=== PATIENT | female | born 1960 | race Caucasian/White ===

== ENCOUNTER 2017-06-10 15:04 | Emergency (ER) | payer MEDICARE ==
[2017-06-10 16:04] LABS: #Basophils 0.1 thou/uL (0.0-0.2); #Eosinphils 0.1 thou/uL (0.0-0.7); #Lymphocytes 2.6 thou/uL (1.20-3.40); #Monocytes 0.4 thou/uL (0.11-0.59); #Neutrophils 4.8 thou/uL (1.40-6.50); %Basophils 0.8 % (0.0-1.0); %Eosinophils 1.7 % (0.0-10.0); %Lymphocytes 32.2 % (21.0-51.0); %Monocytes 4.9 % (0.0-10.0); Bilirubin Negative (Negative); Blood, Urine Large (Negative); Glucose, Urine (Dipstick) Negative (Negative); Hematocrit 41.5 % (36.0-47.0); Ketone, Urine Trace mg/dL (Negative); Mean Platelet Volume 8.2 fL (7.4-10.4); Nitrite Negative (Negative); Protein, Urine (Dipstick) 100 mg/dL (Neg-Trace); Red Blood Cell (RBC) Count 4.53 mill/uL (4.20-5.40); Urobilinogen 0.2 mg/dL (0.2-1.0)
[2017-06-10 16:13] LABS: Bacteria/HPF 2+ HPF (None Seen); WBC/HPF None Seen HPF (0-3)
[2017-06-10 16:21] LABS: ALT (SGPT) 47 U/L (8-55); AST (SGOT) 36 U/L (5-34); Alkaline Phosphatase 114 U/L (40-150); Anion Gap 15 mmol/L (10-20); BUN (Urea Nitrogen) 19 mg/dL (9.8-20.1); Bilirubin, Total 0.4 mg/dL (0.2-1.2); Calc. Creatinine Clearance 0 mL/min (70-130); Calcium 9.4 mg/dL (7.8-10.44); Carbon Dioxide 22 mmol/L (22-29); Chloride 104 mmol/L (98-107); Estimated GFR-MDRD 49; Globulin 3.6 g/dL (2.4-3.5); Magnesium 1.8 mg/dL (1.6-2.6); Protein, Total 7.6 g/dL (6.0-8.3)
[2017-06-10] MEDS ORDERED: Acetaminophen 325 MG TAB ONE (17:31)
== END 2017-06-10 17:50 | disposition home or self-care (01) ==
LOC: SCSER 15:04
DX: E10.65 Type 1 diabetes mellitus with hyperglycemia (principal); K62.5 Hemorrhage of anus and rectum; I10 Essential (primary) hypertension; F31.9 Bipolar disorder, unspecified; Z79.84 Long term (current) use of oral hypoglycemic drugs; Z79.899 Other long term (current) drug therapy
CPT/HCPCS: 36416; 80053; 81003; 81015; 82010; 82274; 83735; 85025; 99284

== ENCOUNTER 2017-06-29 20:30 | Outpatient (CLI) | payer MEDICARE ==
--- OUTSIDE RECORDS SUMMARY | 2017-07-01 02:30 | XMS | Clinical Summary ---
:1960 Author Organization [facility] Address [address] [place] [address] Phone Care Team Providers Name Role Phone Jani Chilel Primary Care Provider tel Allergies No Known Allergies Current Medications Not on file Active Problems Not on file Social History Tobacco Use Types Packs/Day Years Used Date Never Smoker Alcohol Use Drinks/Week oz/Week Comments Yes 2 Standard drinks or equivalent 1.2 Sex Assigned at Date Recorded Not on file Last Filed Vital Signs Vital Sign Reading Time Taken Blood Pressure - - Pulse - - Temperature - - Respiratory Rate - - Oxygen Saturation - - Inhaled Oxygen Concentration - - Weight 86.2 kg (190 lb) 08/05/2016 9:41 AM [facility] Height 165.1 cm (5' 5") 08/05/2016 9:41 AM [facility] Body Mass Index 31.62 08/05/2016 9:41 AM [facility] Plan of Treatment Health Maintenance Due Date Last Done Comments PAP SMEAR 1981 COLONOSCOPY 2010 MAMMOGRAM 2010 INFLUENZA VACCINE 04/05/2017 Results Not on filefrom Last 3 Months Insurance Payer Benefit Plan / Group Subscriber ID Type Phone Address [employer] MCR [id number] [facility] [place] [address] [phone] [id number] [id number]
== END 2017-06-29 20:31 | disposition home or self-care (01) ==
LOC: SLEEPLAB 20:30
PROVIDERS: ATTEND Family Medicine
DX: G47.33 Obstructive sleep apnea (adult) (pediatric) (principal); G47.10 Hypersomnia, unspecified; E66.9 Obesity, unspecified; R53.83 Other fatigue; I10 Essential (primary) hypertension
CPT/HCPCS: 95810

== ENCOUNTER 2017-08-17 19:37 | Emergency (ER) | payer MEDICARE ==
--- NOTE | 2017-08-17 21:18 | RAD ---
FOUR VIEWS LEFT ELBOW: 08/17/17 HISTORY: 57-year-old with history of fall with left elbow pain. AP, lateral, and both oblique views left elbow is obtained. Four views left elbow demonstrate no evidence of left elbow fractures, subluxations or bony lesions. IMPRESSION: Normal four views left elbow. POS: [facility]
== END 2017-08-17 22:00 | disposition home or self-care (01) ==
LOC: SCSER 19:37
DX: S50.02XA Contusion of left elbow, initial encounter (principal); E11.9 Type 2 diabetes mellitus without complications; F31.9 Bipolar disorder, unspecified; I10 Essential (primary) hypertension; Z79.84 Long term (current) use of oral hypoglycemic drugs; Z79.899 Other long term (current) drug therapy; W18.09XA Striking against other object with subsequent fall, initial encounter

== ENCOUNTER 2017-09-10 19:55 | Emergency (ER) | payer MEDICARE ==
[2017-09-10 20:20] LABS: Bilirubin Negative (Negative); Blood, Urine Moderate (Negative); Clarity Cloudy (Clear); Glucose, Urine (Dipstick) 500 mg/dL (Negative); Leukocyte Negative (Negative); Nitrite Negative (Negative); Protein, Urine (Dipstick) Negative (Neg-Trace); Urobilinogen 0.2 mg/dL (0.2-1.0); pH, Urine 5.5 (5.0-9.0)
[2017-09-10] MEDS ORDERED: Metoclopramide HCl 10 MG/2 ML VIAL ONE (20:24)
[2017-09-10] MEDS ORDERED: Ketorolac Tromethamine 30 MG/ML VIAL ONE (20:24)
[2017-09-10 20:33] LABS: Bacteria/HPF 1+ HPF (None Seen)
[2017-09-10 20:34] LABS: Crystals/HPF 2+ TALC HPF (Negative); Hyaline Casts/LPF 0-3 HYALINE CAST LPF (0-3 Hyaline)
[2017-09-10 20:50] LABS: #Basophils 0.1 thou/uL (0.0-0.2); #Eosinphils 0.1 thou/uL (0.0-0.7); #Lymphocytes 2.1 thou/uL (1.20-3.40); #Monocytes 0.3 thou/uL (0.11-0.59); #Neutrophils 2.3 thou/uL (1.40-6.50); %Basophils 1.3 % (0.0-1.0); %Lymphocytes 43.2 % (21.0-51.0); %Monocytes 5.7 % (0.0-10.0); %Neutrophils 46.7 % (42.0-75.0); Hemoglobin 14.9 g/dL (12.0-16.0); Mean Corpuscular HGB CONC 35.4 g/dL (32.0-36.0); Mean Corpuscular Hemoglobin 32.8 pg (27.0-31.0); Mean Corpuscular Volume 92.7 fl (81.0-99.0); Mean Platelet Volume 7.9 fL (7.4-10.4); Platelet Count 164 thou/uL (130-400); RBC Distribution Width 10.4 % (11.5-14.5); Red Blood Cell (RBC) Count 4.54 mill/uL (4.20-5.40); White Blood Cell (WBC) Count 4.9 thou/uL (4.8-10.8)
[2017-09-10 21:05] LABS: ALT (SGPT) 27 U/L (8-55); AST (SGOT) 18 U/L (5-34); Alkaline Phosphatase 125 U/L (40-150); Anion Gap 15 mmol/L (10-20); BUN (Urea Nitrogen) 23 mg/dL (9.8-20.1); Bilirubin, Total 0.3 mg/dL (0.2-1.2); Calc. Creatinine Clearance 0 mL/min (70-130); Calcium 9.6 mg/dL (7.8-10.44); Carbon Dioxide 22 mmol/L (22-29); Chloride 104 mmol/L (98-107); Estimated GFR-MDRD 57; Globulin 3.5 g/dL (2.4-3.5); Glucose 353 mg/dL (70-105); Lipase 55 U/L (8-78); Magnesium 1.9 mg/dL (1.6-2.6); Potassium 4.1 mmol/L (3.5-5.1); Protein, Total 7.5 g/dL (6.0-8.3); Sodium 137 mmol/L (136-145)
--- NOTE | 2017-09-10 21:05 | RAD ---
CHEST ONE VIEW 09/10/17 HISTORY: Cough and fever. COMPARISON: Chest two view 10/30/16. FINDINGS: Lungs are clear. No pneumothorax or effusion. The cardiac silhouette and mediastinal contours are wit hin normal limits. IMPRESSION: No acute intrathoracic abnormality. POS: [facility]
[2017-09-10] MEDS ORDERED: traMADol HCl 50 MG TAB ONE (21:43)
--- NOTE | 2017-10-01 18:16 | EKG ---
Test Reason : Blood Pressure : / mmHG Vent. Rate : 079 BPM Atrial Rate : 079 BPM P-R Int : 156 ms QRS Dur : 088 ms QT Int : 408 ms P-R-T Axes : 020 007 007 degrees QTc Int : 467 ms Normal sinus rhythm Nonspecific ST and T wave abnormality Abnormal ECG Confirmed by KATHLEEN LOPEZ D.O. ([id number]), field map editor DULCE ARTHUR ([id number]) on 10/01/2017 6:15:36 PM Referred By: JESSICA Confirmed By:KATHLEEN LOPEZ D.O.
== END 2017-09-10 21:50 | disposition home or self-care (01) ==
LOC: SCSER 19:55
DX: B34.9 Viral infection, unspecified (principal); E11.65 Type 2 diabetes mellitus with hyperglycemia; I10 Essential (primary) hypertension; F32.9 Major depressive disorder, single episode, unspecified; Z87.891 Personal history of nicotine dependence; Z79.899 Other long term (current) drug therapy; Z79.84 Long term (current) use of oral hypoglycemic drugs
CPT/HCPCS: 71045; 80053; 81003; 81015; 83690; 83735; 85025; 87804; 93005; 96365; 96375; J1885; J2765

== ENCOUNTER 2018-04-26 15:13 | Outpatient (CLI) | payer MEDICARE | END 2018-04-26 15:14 | disposition home or self-care (01) | LOC: BICMAMMO 15:13 | PROVIDERS: ATTEND Family Medicine | DX: Z12.31 Encounter for screening mammogram for malignant neoplasm of breast (principal) | CPT/HCPCS: 77063; 77067 ==

== ENCOUNTER 2018-08-31 10:06 | Emergency (ER) | payer MEDICARE ==
[2018-08-31] MEDS ORDERED: Ibuprofen 800 MG TAB ONE (10:45)
--- NOTE | 2018-08-31 11:12 | RAD ---
LEFT FOOT 3 VIEWS: Date: 08/31/18 PROVIDED CLINICAL HISTORY: Left foot pain status post injury. FINDINGS: First MTP joint degenerative changes are seen. There is no evidence for fracture or other acute osseo us abnormality. If there is persistent clinical concern, conservative management and follow-up imagin g are advised. IMPRESSION: As above. POS: [facility]
== END 2018-08-31 10:54 | disposition home or self-care (01) ==
LOC: SCSER 10:06
DX: S93.602A Unspecified sprain of left foot, initial encounter (principal); E11.9 Type 2 diabetes mellitus without complications; I10 Essential (primary) hypertension; F31.9 Bipolar disorder, unspecified; Z79.899 Other long term (current) drug therapy; Z79.84 Long term (current) use of oral hypoglycemic drugs; W19.XXXA Unspecified fall, initial encounter

== ENCOUNTER 2018-11-07 12:56 | Outpatient (CLI) | payer MEDICARE | END 2018-11-07 12:57 | disposition home or self-care (01) | LOC: DTY/OP 12:56 | PROVIDERS: ATTEND Surgery | DX: E66.01 Morbid (severe) obesity due to excess calories (principal) | CPT/HCPCS: 97802 ==

== ENCOUNTER 2018-12-11 17:00 | Inpatient (IN) | payer MEDICARE ==
[2018-12-11 17:19] VITALS: BMI 40.1
[2018-12-14] MEDS ORDERED: Fentanyl 100 MCG/2 ML VIAL ONE ×4 (06:25→09:21)
[2018-12-14] MEDS ORDERED: Bupivacaine/Epinephrine 0.25% 30 ML VIAL ONE (06:35)
[2018-12-14] MEDS ORDERED: Heparin 5,000 UNITS/ML VIAL ONE (06:42)
[2018-12-14] MEDS ORDERED: diphenhydrAMINE 50 MG/ML VIAL IVP PRN ×2 (08:27→08:41)
[2018-12-14] MEDS ORDERED: Ondansetron PF 4 MG/2 ML Vial IVP PRN ×2 (08:27→08:41)
[2018-12-14] MEDS ORDERED: Dextrose 5% in Water 1,000 ML IV PRN (08:27)
[2018-12-14] MEDS ORDERED: hydrALAZINE 20 MG/ML VIAL SLOW IVP PRN (08:27)
[2018-12-14] MEDS ORDERED: Promethazine HCl 25 MG/ML VIAL IM PRN ×3 (08:27→08:41)
[2018-12-14] MEDS ORDERED: Dextrose 50% Abboject 50 ML SYRINGE SLOW IVP PRN (08:27)
[2018-12-14] MEDS ORDERED: Meperidine HCl/PF 25 MG/ML VIAL SLOW IVP PRN (08:39)
[2018-12-14] MEDS ORDERED: Ondansetron HCl/PF 4 MG/2 ML Vial IVP PRN (08:39)
[2018-12-14] MEDS ORDERED: Morphine Sulfate 2 MG/ML SYRINGE SLOW IVP PRN (08:39)
[2018-12-14] MEDS ORDERED: Promethazine HCl 25 MG/ML VIAL SLOW IVP PRN (08:39)
[2018-12-14] MEDS ORDERED: HYDROmorphone 2 MG/ML VIAL SLOW IVP PRN (08:39)
[2018-12-14] MEDS ORDERED: Ketorolac Tromethamine 30 MG/ML VIAL IVP PRN (08:39)
[2018-12-14] MEDS ORDERED: diphenhydrAMINE 25 MG CAP PO PRN (08:41)
[2018-12-14] MEDS ORDERED: fentaNYL Citrate/PF 2,000 MCG in Sodium Chloride 0.9% 60 ML IV PRN ×2 (08:41→13:30)
[2018-12-14] MEDS ORDERED: Zolpidem Tartrate 5 MG TAB PO PRN (08:41)
[2018-12-14] MEDS ORDERED: Naloxone HCl 0.4 mg/ml Vial IV PRN (08:41)
[2018-12-14] MEDS ORDERED: diphenhydrAMINE 50 MG/ML VIAL IM PRN (08:41)
[2018-12-14] MEDS ORDERED: Communication Order-Pharmacy FS SCH (08:45)
[2018-12-14] MEDS ORDERED: Ketorolac Tromethamine 30 MG/ML VIAL ONE (08:57)
[2018-12-14] MEDS ORDERED: Pantoprazole 40 MG VIAL IVP SCH (09:00)
[2018-12-14] MEDS ORDERED: Enoxaparin Sodium 40 MG/0.4 ML SYRINGE SC SCH (09:00)
[2018-12-14] MEDS ORDERED: Promethazine HCl 25 MG/ML VIAL ONE (09:39)
[2018-12-14] MEDS ORDERED: Ketorolac Tromethamine 30 MG/ML VIAL IVP SCH (12:00)
[2018-12-14] MEDS: 1/2 NS w/KCL 20 mEq 1,000 ML IV SCH ×2 (13:05→18:19)
--- NOTE | 2018-12-14 13:47 | OP ---
DATE OF PROCEDURE: 12/14/2018 PREOPERATIVE DIAGNOSIS: Morbid obesity. PROCEDURE PERFORMED: Laparoscopic sleeve gastrectomy. INDICATIONS: The patient is a 58-year-old female, who is morbidly obese. She has attempted multiple weight loss programs without success. She is here for sleeve gastrectomy. FINDINGS: A 38-Greek bougie was used. DESCRIPTION OF PROCEDURE: After informed consent was obtained, the patient was taken to the operating room and given general endotracheal anesthesia. She was placed in the supine position and her abdomen was prepped and draped in usual fashion. Local anesthesia was infiltrated subcutaneously and deep and a 12-mm incision was performed approximately 8 inches above the xiphoid slightly to left. Veress needle was inserted. Drop test was performed. Pneumoperitoneum was created to a volume of 2 L of carbon dioxide. Using a bladeless 12-mm trocar and 0-degree laparoscope, direct visual entry into the abdominal cavity was performed. Pneumoperitoneum was created to a pressure of 15 mmHg and the patient was placed in steep reverse Trendelenburg position. Jay liver retractor was inserted. Left lobe of the liver was retracted superiorly. The pylorus was identified. A 12-mm port was placed on the right beneath it and two 12s placed left subcostal. The omentum was taken off the greater curvature 5 cm from the pylorus utilizing the LigaSure. The short gastrics divided with LigaSure and the left crura defined with LigaSure. A 38-Greek bougie was inserted and directed into the antrum. A linear 60 mm green load stapler was used to divide the antrum to the bougie, gold load along the bougie, and a series of blues through the angle of His. Intraoperative endoscopy was performed. The video endoscope was inserted under direct vision and advanced into the sleeve. The staple line was inspected. There was no bleeding. Staple line then tested by inflating the new stomach with pressurized air and water. There was no air leak. Stomach was decompressed. Scope was removed. The remnant stomach removed from the abdomen through the left lateral port. The fascia closed with 0 Vicryl suture and the GraNee needle. Trocars and retractors were removed. The skin was closed with interrupted 4-0 Rapide. Dermabond applied. The patient tolerated the procedure well, transferred to Recovery in good condition. Sponge and needle count verified correct x2. Job ID: [id number]
[2018-12-14] MEDS: CEFAZOLIN 2 GM in Premix Bag 1 BAG IVPB SCH ×2 (15:01→21:50)
[2018-12-14] MEDS: Ketorolac Tromethamine 30 MG/ML VIAL IVP SCH ×2 (15:01→21:50)
[2018-12-14] MEDS ORDERED: Ondansetron PF 4 MG/2 ML Vial ONE (16:14)
[2018-12-14] MEDS ORDERED: Glycopyrrolate 0.2 MG/ML 5 ML SYRINGE ONE (16:14)
[2018-12-14] MEDS ORDERED: diphenhydrAMINE 50 MG/ML VIAL ONE (16:14)
[2018-12-14] MEDS ORDERED: ePHEDrine 50 MG/ML VIAL ONE (16:14)
[2018-12-14] MEDS ORDERED: PROPOFOL 200 MG/20 ML VIAL ONE (16:14)
[2018-12-14] MEDS ORDERED: Rocuronium Bromide 10 MG/ML (10ML VIAL) ONE (16:14)
[2018-12-14] MEDS ORDERED: Lidocaine 1% PF 5 ML VIAL ONE (16:14)
[2018-12-14] MEDS ORDERED: Dexamethasone 20 MG/5 ML VIAL ONE (16:14)
[2018-12-14] MEDS ORDERED: Sodium Chloride 0.9% 1,000 ML IV SCH (17:00)
[2018-12-14 17:57] LABS: Hemoglobin 11.9 g/dL (12.0-16.0)
[2018-12-15 00:21] LABS: Hemoglobin 11.4 g/dL (12.0-16.0)
[2018-12-15] MEDS: Ketorolac Tromethamine 30 MG/ML VIAL IVP SCH ×4 (02:02→20:20)
[2018-12-15] MEDS: 1/2 NS w/KCL 20 mEq 1,000 ML IV SCH ×3 (02:03→17:20)
[2018-12-15 08:11] LABS: #Basophils 0.1 thou/uL (0.0-0.2); #Lymphocytes 1.7 thou/uL (1.20-3.40); #Monocytes 0.7 thou/uL (0.11-0.59); #Neutrophils 9.2 thou/uL (1.40-6.50); %Basophils 0.4 % (0.0-1.0); %Eosinophils 0.2 % (0.0-10.0); %Lymphocytes 14.4 % (21.0-51.0); %Monocytes 6.1 % (0.0-10.0); %Neutrophils 78.9 % (42.0-75.0); Hemoglobin 9.9 g/dL (12.0-16.0); Mean Corpuscular HGB CONC 34.8 g/dL (32.0-36.0); Mean Corpuscular Hemoglobin 33.6 pg (27.0-31.0); Mean Corpuscular Volume 96.8 fL (78.0-98.0); Mean Platelet Volume 7.7 fL (7.4-10.4); Platelet Count 208 thou/uL (130-400); RBC Distribution Width 11.6 % (11.5-14.5); Red Blood Cell (RBC) Count 2.94 mill/uL (4.20-5.40); White Blood Cell (WBC) Count 11.7 thou/uL (4.8-10.8)
[2018-12-15 08:24] LABS: Anion Gap 17 mmol/L (10-20); BUN (Urea Nitrogen) 51 mg/dL (9.8-20.1); Calc. Creatinine Clearance 40 mL/min (70-130); Calcium 7.9 mg/dL (7.8-10.44); Carbon Dioxide 16 mmol/L (22-29); Chloride 106 mmol/L (98-107); Estimated GFR-MDRD 19; Glucose 140 mg/dL (70-105); Sodium 134 mmol/L (136-145)
--- NOTE | 2018-12-15 08:40 | RAD ---
Exam: Barium swallow:: HISTORY: Postop gastric bypass/gastric sleeve Swallowed Gastrografin, 15 cc, somewhat slowly progressed into the postoperative stomach. After sever al minutes there was complete extension of contrast through the postoperative stomach. No evidence for contrast extravasation. IMPRESSION: No evidence for obstruction or extravasation. Minimal delay of flow of contrast through the postopera tive stomach.
[2018-12-15] MEDS: Pantoprazole 40 MG VIAL IVP SCH (08:52)
[2018-12-15] MEDS ORDERED: Enoxaparin Sodium 40 MG/0.4 ML SYRINGE SC SCH (09:00)
[2018-12-15] MEDS: Hydrocodone-Acetamin 15 ML UDCUP PO PRN ×2 (09:06→13:02)
[2018-12-15] MEDS: Insulin Regular 300 UNITS/3 ML VIAL SC PRN ×2 (13:02→20:20)
[2018-12-15] MEDS: Fentanyl 100 MCG/2 ML VIAL SLOW IVP PRN ×5 (13:36→22:30)
[2018-12-16] MEDS: 1/2 NS w/KCL 20 mEq 1,000 ML IV SCH ×2 (00:06→07:35)
[2018-12-16] MEDS: Ketorolac Tromethamine 30 MG/ML VIAL IVP SCH ×2 (02:09→08:43)
[2018-12-16] MEDS: Fentanyl 100 MCG/2 ML VIAL SLOW IVP PRN ×4 (02:10→11:12)
[2018-12-16 06:21] LABS: #Eosinphils 0.1 thou/uL (0.0-0.7); #Lymphocytes 1.4 thou/uL (1.20-3.40); #Monocytes 0.5 thou/uL (0.11-0.59); #Neutrophils 4.7 thou/uL (1.40-6.50); %Basophils 0.6 % (0.0-1.0); %Eosinophils 1.1 % (0.0-10.0); %Lymphocytes 21.2 % (21.0-51.0); %Monocytes 6.9 % (0.0-10.0); %Neutrophils 70.1 % (42.0-75.0); Hemoglobin 7.4 g/dL (12.0-16.0); Mean Corpuscular HGB CONC 34.1 g/dL (32.0-36.0); Mean Corpuscular Hemoglobin 33.6 pg (27.0-31.0); Mean Corpuscular Volume 98.7 fL (78.0-98.0); Mean Platelet Volume 7.4 fL (7.4-10.4); Platelet Count 126 thou/uL (130-400); RBC Distribution Width 11.5 % (11.5-14.5); White Blood Cell (WBC) Count 6.6 thou/uL (4.8-10.8)
[2018-12-16] MEDS: Pantoprazole 40 MG VIAL IVP SCH (08:43)
[2018-12-16] MEDS: Insulin Regular 300 UNITS/3 ML VIAL SC PRN (11:13)
[2018-12-16 12:14] VITALS: TEMP 98.7
[2018-12-16 12:20] LABS: Hemoglobin 8.2 g/dL (12.0-16.0)
[2018-12-16 16:15] VITALS: BP 99/56
--- NOTE | 2018-12-18 12:05 | DIS ---
DATE OF ADMISSION: 12/14/2018 DATE OF DISCHARGE: 12/16/2018 DISCHARGE DIAGNOSES: Morbid obesity, postop abdominal wall hematoma. PROCEDURES DURING ADMISSION: Laparoscopic sleeve gastrectomy, intraoperative esophagogastroscopy, and postoperative Gastrografin swallow. HOSPITAL COURSE: The patient was admitted, taken to the operating room, where she underwent a laparoscopic sleeve gastrectomy. Postoperatively, her swallow study was fine. She was started on liquids, but she became a little hypotensive and her H and H dropped. She did not receive any blood. We followed that and it has been stabilized out. She is now doing well. She is tolerating liquids well. Her pain is controlled with no medications. She is discharged home on hydrocodone and Zofran. She will follow up with me in 2 weeks. Job ID: [id number]
== END 2018-12-16 16:00 | disposition home or self-care (01) | DRG 620 ==
LOC: SURG A 12-14 06:01
PROVIDERS: ADMIT Surgery; ATTEND Surgery
PROC: 0DB64Z3 Excision of Stomach, Percutaneous Endoscopic Approach, Vertical (ICD-10-PCS; principal; 2018-12-14)
DX: E66.01 Morbid (severe) obesity due to excess calories (principal); L76.32 Postprocedural hematoma of skin and subcutaneous tissue following other procedure; Z68.41 Body mass index [BMI] 40.0-44.9, adult; Z90.710 Acquired absence of both cervix and uterus; Z90.49 Acquired absence of other specified parts of digestive tract; Z87.891 Personal history of nicotine dependence; Z01.812 Encounter for preprocedural laboratory examination
CPT/HCPCS: 36415; 36416; 71046; 74241; 80048; 80053; 80076; 83036; 85014; 85018; 85025; 86850; 86900; 86901; 88307; 88312; 94760; C9113; J0131; J0690; J1100; J1200; J1644; J1815; J1885; J2001; J2405; J2550; J2704; J3010; J3480; J3490

== ENCOUNTER 2018-12-11 17:16 | Outpatient (CLI) | payer MEDICARE ==
--- NOTE | 2018-12-11 18:11 | RAD ---
PA AND LATERAL CHEST: History: Pre-operative evaluation. FINDINGS: Comparison is made with exam of 02-22-18. The heart size is normal. The lungs are well expanded without focal areas of consolidation, pneumotho races, or pleural effusions. There are degenerative changes in the spine. IMPRESSION: No radiographic evidence of acute cardiopulmonary process. POS: [facility]
[2018-12-11 18:35] LABS: ALT (SGPT) 27 U/L (8-55); AST (SGOT) 23 U/L (5-34); Albumin 4.1 g/dL (3.5-5.0); Alkaline Phosphatase 112 U/L (40-150); Anion Gap 11 mmol/L (10-20); BUN (Urea Nitrogen) 18 mg/dL (9.8-20.1); Bilirubin, Direct 0.2 mg/dL (0.1-0.3); Bilirubin, Total 0.6 mg/dL (0.2-1.2); Calc. Creatinine Clearance 0 mL/min (70-130); Calcium 9.8 mg/dL (7.8-10.44); Carbon Dioxide 26 mmol/L (22-29); Chloride 105 mmol/L (98-107); Estimated GFR-MDRD 74; Glucose 77 mg/dL (70-105); Potassium 3.9 mmol/L (3.5-5.1); Protein, Total 7.1 g/dL (6.0-8.3); Sodium 138 mmol/L (136-145)
[2018-12-11 19:53] LABS: #Eosinphils 0.1 thou/uL (0.0-0.7); #Lymphocytes 1.9 thou/uL (1.20-3.40); #Monocytes 0.4 thou/uL (0.11-0.59); #Neutrophils 3.6 thou/uL (1.40-6.50); %Basophils 0.8 % (0.0-1.0); %Eosinophils 2.1 % (0.0-10.0); %Lymphocytes 31.5 % (21.0-51.0); %Monocytes 6.6 % (0.0-10.0); %Neutrophils 59.1 % (42.0-75.0); Hemoglobin 14.7 g/dL (12.0-16.0); Mean Corpuscular HGB CONC 34.1 g/dL (32.0-36.0); Mean Corpuscular Hemoglobin 33.3 pg (27.0-31.0); Mean Corpuscular Volume 97.5 fL (78.0-98.0); Platelet Count 169 thou/uL (130-400); Red Blood Cell (RBC) Count 4.41 mill/uL (4.20-5.40); White Blood Cell (WBC) Count 6.2 thou/uL (4.8-10.8)
== END 2018-12-11 17:17 | disposition home or self-care (01) ==
LOC: LABBT 17:16
PROVIDERS: ATTEND Surgery
DX: Z01.812 Encounter for preprocedural laboratory examination (principal); E66.01 Morbid (severe) obesity due to excess calories
CPT/HCPCS: 71046; 80053; 80076; 83036; 85025

== ENCOUNTER 2021-01-21 13:45 | Inpatient (IN) | payer MEDICARE ==
[2021-01-23 11:48] VITALS: BMI 31.2
[2021-01-26] MEDS ORDERED: Heparin 5,000 UNITS/ML VIAL ONE (08:33)
[2021-01-26] MEDS ORDERED: Bupivacaine 0.25% HCL 30 ML VIAL ONE (08:51)
[2021-01-26] MEDS ORDERED: Lidocaine 1% w/Epinephrine 1:100K 20 ML VIAL ONE (08:51)
[2021-01-26] MEDS ORDERED: SUGAMMADEX SODIUM 200 MG/2 ML VIAL ONE (09:25)
[2021-01-26] MEDS ORDERED: Fentanyl 250 MCG/5 ML VIAL ONE (09:25)
[2021-01-26] MEDS ORDERED: Glycopyrrolate 0.2 MG/ML 5 ML SYRINGE ONE (09:45)
[2021-01-26] MEDS ORDERED: Ketorolac Tromethamine 30 MG/ML VIAL ONE (09:45)
[2021-01-26] MEDS ORDERED: PROPOFOL 200 MG/20 ML VIAL ONE (09:45)
[2021-01-26] MEDS ORDERED: Ondansetron PF 4 MG/2 ML Vial ONE (09:45)
[2021-01-26] MEDS ORDERED: Lidocaine 1% PF 5 ML VIAL ONE (09:45)
[2021-01-26] MEDS ORDERED: Succinylcholine 200 MG/10 ml SYRINGE FS ONE (09:45)
[2021-01-26] MEDS ORDERED: Dexamethasone 20 MG/5 ML VIAL ONE (09:45)
[2021-01-26] MEDS ORDERED: ePHEDrine Sulfate 50 MG/10 ML VIAL ONE (09:45)
[2021-01-26] MEDS ORDERED: PHENYLEPHRINE-NS 100 MCG/ML 10 ML SYRINGE ONE (09:45)
[2021-01-26] MEDS ORDERED: Rocuronium Bromide 10 MG/ML (10ML VIAL) ONE (09:45)
[2021-01-26] MEDS ORDERED: Ondansetron HCl/PF 4 MG/2 ML Vial IVP PRN (10:50)
[2021-01-26] MEDS ORDERED: Promethazine HCl 25 MG/ML VIAL SLOW IVP PRN (10:50)
[2021-01-26] MEDS ORDERED: Promethazine HCl 25 MG/ML VIAL IM PRN ×3 (10:50→11:22)
[2021-01-26] MEDS ORDERED: Hydrocodone-Acetamin 15 ML UDCUP PO PRN (11:17)
[2021-01-26] MEDS ORDERED: diphenhydrAMINE 50 MG/ML VIAL IVP PRN ×2 (11:17→11:22)
[2021-01-26] MEDS ORDERED: Dextrose 5% in Water 1,000 ML IV PRN (11:17)
[2021-01-26] MEDS ORDERED: Ondansetron PF 4 MG/2 ML Vial IVP PRN ×2 (11:17→11:22)
[2021-01-26] MEDS ORDERED: Dextrose 50% Abboject 50 ML SYRINGE SLOW IVP PRN (11:17)
[2021-01-26] MEDS ORDERED: hydrALAZINE 20 MG/ML VIAL SLOW IVP PRN (11:17)
[2021-01-26] MEDS ORDERED: Zolpidem Tartrate 5 MG TAB PO PRN (11:22)
[2021-01-26] MEDS ORDERED: Naloxone HCl 0.4 mg/ml Vial IV PRN (11:22)
[2021-01-26] MEDS ORDERED: diphenhydrAMINE 50 MG/ML VIAL IM PRN (11:22)
[2021-01-26] MEDS ORDERED: diphenhydrAMINE 25 MG CAP PO PRN (11:22)
[2021-01-26] MEDS ORDERED: fentaNYL Citrate/PF 2,000 MCG in Sodium Chloride 0.9% 60 ML IV PRN (11:22)
[2021-01-26] MEDS ORDERED: Communication Order-Pharmacy FS SCH (11:30)
[2021-01-26] MEDS ORDERED: Fentanyl 100 MCG/2 ML VIAL ONE (11:51)
[2021-01-26] MEDS ORDERED: Sodium Chloride 0.9% (PF) 10 ML VIAL FS PRN (12:15)
[2021-01-26] MEDS: Ketorolac Tromethamine 30 MG/ML VIAL IVP SCH ×3 (14:17→23:45)
[2021-01-26] MEDS: D5 1/2 NS w/20 mEq KCL 1,000 ML IV SCH ×2 (15:00→23:49)
[2021-01-26] MEDS: CEFAZOLIN 2 GM in Premix Bag 1 BAG IVPB SCH ×2 (17:51→23:46)
[2021-01-27] MEDS: D5 1/2 NS w/20 mEq KCL 1,000 ML IV SCH ×2 (05:59→09:10)
[2021-01-27] MEDS: Ketorolac Tromethamine 30 MG/ML VIAL IVP SCH ×2 (05:59→14:02)
[2021-01-27 06:28] LABS: #Lymphocytes 1.5 thou/uL (1.20-3.40); #Monocytes 0.5 thou/uL (0.11-0.59); #Neutrophils 7.5 thou/uL (1.40-6.50); %Basophils 0.2 % (0.0-1.0); %Eosinophils 0.2 % (0.0-10.0); %Lymphocytes 15.9 % (21.0-51.0); %Monocytes 5.5 % (0.0-10.0); %Neutrophils 78.3 % (42.0-75.0); Hemoglobin 12.2 g/dL (12.0-16.0); Mean Corpuscular HGB CONC 33.8 g/dL (32.0-36.0); Mean Corpuscular Hemoglobin 34.1 pg (27.0-31.0); Mean Platelet Volume 8.5 fL (7.4-10.4); Platelet Count 143 thou/uL (130-400); RBC Distribution Width 11.7 % (11.5-14.5); Red Blood Cell (RBC) Count 3.56 mill/uL (4.20-5.40); White Blood Cell (WBC) Count 9.6 thou/uL (4.8-10.8)
[2021-01-27 06:46] LABS: Anion Gap 11 mmol/L (10-20); BUN (Urea Nitrogen) 22 mg/dL (9.8-20.1); Calc. Creatinine Clearance 91 mL/min (70-130); Calcium 8.4 mg/dL (7.8-10.44); Carbon Dioxide 23 mmol/L (22-29); Chloride 104 mmol/L (98-107); Glucose 89 mg/dL (70-105); Potassium 4.6 mmol/L (3.5-5.1); Sodium 133 mmol/L (136-145)
[2021-01-27] MEDS ORDERED: Pantoprazole 40 MG VIAL IVP SCH (09:00)
[2021-01-27] MEDS ORDERED: Enoxaparin Sodium 40 MG/0.4 ML SYRINGE SC SCH (09:00)
[2021-01-27 11:31] LABS: Bacteria/HPF None Seen HPF (None Seen); Bilirubin Negative (Negative); Blood, Urine 2+ (Negative); Clarity Clear (Clear); Glucose, Urine (Dipstick) Normal (Negative); Ketone, Urine Negative (Negative); Leukocyte Negative Leu/uL (Negative); Nitrite Negative (Negative); Protein, Urine (Dipstick) Negative (Neg-Trace); RBC/HPF 21-50 HPF (0-3); Specific Gravity, Urine 1.019 (1.002-1.036); Urobilinogen Normal mg/dL (Less than 2)
[2021-01-27 11:34] LABS: Urine Culture Reflex No No
[2021-01-27 15:59] VITALS: BP 96/60; TEMP 97.1
== END 2021-01-27 15:30 | disposition home or self-care (01) | DRG 328 ==
LOC: SURG A 01-26 08:14
PROVIDERS: ADMIT Surgery; ATTEND Surgery
PROC: 0D164ZA Bypass Stomach to Jejunum, Percutaneous Endoscopic Approach (ICD-10-PCS; principal; 2021-01-26)
PROC: 0DJ68ZZ Inspection of Stomach, Via Natural or Artificial Opening Endoscopic (ICD-10-PCS; 2021-01-26)
DX: K21.00 Gastro-esophageal reflux disease with esophagitis, without bleeding (principal); E66.01 Morbid (severe) obesity due to excess calories; R31.0 Gross hematuria; Z88.8 Allergy status to other drugs, medicaments and biological substances; Z90.49 Acquired absence of other specified parts of digestive tract; Z90.710 Acquired absence of both cervix and uterus; Z98.890 Other specified postprocedural states; Z98.84 Bariatric surgery status; Z87.442 Personal history of urinary calculi; Z68.31 Body mass index [BMI] 31.0-31.9, adult
CPT/HCPCS: 36415; 76770; 80048; 81001; 85025; C9113; J0690; J1100; J1644; J1885; J2405; J2704; J3010; J3480; J3490; S0020

== ENCOUNTER 2021-02-24 10:26 | Inpatient (IN) | payer MEDICARE ==
[2021-02-24 10:55] LABS: #Basophils 0.1 thou/uL (0.0-0.2); #Eosinphils 0.1 thou/uL (0.0-0.7); #Lymphocytes 1.2 thou/uL (1.20-3.40); #Monocytes 0.4 thou/uL (0.11-0.59); #Neutrophils 5.7 thou/uL (1.40-6.50); %Basophils 0.9 % (0.0-1.0); %Eosinophils 1.8 % (0.0-10.0); %Lymphocytes 16.4 % (21.0-51.0); %Monocytes 5.5 % (0.0-10.0); %Neutrophils 75.3 % (42.0-75.0); Hemoglobin 14.6 g/dL (12.0-16.0); Mean Corpuscular HGB CONC 33.3 g/dL (32.0-36.0); Mean Corpuscular Hemoglobin 32.6 pg (27.0-31.0); Mean Corpuscular Volume 97.7 fL (78.0-98.0); Mean Platelet Volume 7.9 fL (7.4-10.4); Platelet Count 171 thou/uL (130-400); RBC Distribution Width 11.4 % (11.5-14.5); White Blood Cell (WBC) Count 7.5 thou/uL (4.8-10.8)
[2021-02-24 11:18] LABS: ALT (SGPT) 11 U/L (8-55); AST (SGOT) 13 U/L (5-34); Albumin 3.9 g/dL (3.5-5.0); Alkaline Phosphatase 116 U/L (40-110); Anion Gap 12 mmol/L (10-20); BUN (Urea Nitrogen) 13 mg/dL (9.8-20.1); Bilirubin, Total 0.9 mg/dL (0.2-1.2); Calc. Creatinine Clearance 0 mL/min (70-130); Carbon Dioxide 28 mmol/L (22-29); Chloride 103 mmol/L (98-107); Globulin 3.4 g/dL (2.4-3.5); Glucose 100 mg/dL (70-105); Lipase 25 U/L (8-78); Potassium 4.2 mmol/L (3.5-5.1); Protein, Total 7.3 g/dL (6.0-8.3); Sodium 139 mmol/L (136-145)
[2021-02-24] MEDS ORDERED: Pantoprazole 40 MG VIAL ONE (11:43)
[2021-02-24] MEDS ORDERED: Ondansetron PF 4 MG/2 ML Vial ONE (11:43)
[2021-02-24] MEDS ORDERED: Morphine 4 MG/ML VIAL ONE (11:43)
[2021-02-24] MEDS ORDERED: Fentanyl 100 MCG/2 ML VIAL ONE ×3 (12:36→16:42)
[2021-02-24] MEDS ORDERED: Ondansetron PF 4 MG/2 ML Vial IVP PRN (17:15)
[2021-02-24] MEDS ORDERED: Ondansetron ODT 4 MG TAB SL PRN (17:15)
[2021-02-24] MEDS: Sodium Chloride 0.9% 1,000 ML IV SCH (17:40)
[2021-02-24] MEDS: Fentanyl 100 MCG/2 ML VIAL SLOW IVP PRN ×2 (18:04→22:24)
[2021-02-24 18:43] VITALS: BMI 28.0
[2021-02-24] MEDS: Ketorolac Tromethamine 30 MG/ML VIAL IVP PRN (20:52)
[2021-02-25] MEDS: Ketorolac Tromethamine 30 MG/ML VIAL IVP PRN ×4 (03:53→22:37)
[2021-02-25] MEDS ORDERED: Ondansetron PF 4 MG/2 ML Vial IVP PRN ×2 (03:59→07:17)
[2021-02-25] MEDS: Sodium Chloride 0.9% 1,000 ML IV SCH (04:04)
[2021-02-25] MEDS ORDERED: Promethazine HCl 25 MG in Sodium Chloride 0.9% 50 ML IVPB PRN (07:17)
[2021-02-25] MEDS ORDERED: Sodium Chloride 0.9% (PF) 10 ML VIAL FS PRN (07:45)
[2021-02-25 07:54] LABS: #Eosinphils 0.1 thou/uL (0.0-0.7); #Lymphocytes 1.2 thou/uL (1.20-3.40); #Monocytes 0.5 thou/uL (0.11-0.59); #Neutrophils 5.1 thou/uL (1.40-6.50); %Basophils 0.1 % (0.0-1.0); %Eosinophils 2.1 % (0.0-10.0); %Lymphocytes 16.9 % (21.0-51.0); %Monocytes 6.8 % (0.0-10.0); %Neutrophils 74.1 % (42.0-75.0); Hemoglobin 12.9 g/dL (12.0-16.0); Mean Corpuscular HGB CONC 33.7 g/dL (32.0-36.0); Mean Corpuscular Hemoglobin 33.2 pg (27.0-31.0); Mean Corpuscular Volume 98.6 fL (78.0-98.0); Mean Platelet Volume 8.1 fL (7.4-10.4); Platelet Count 146 thou/uL (130-400); RBC Distribution Width 11.4 % (11.5-14.5); Red Blood Cell (RBC) Count 3.87 mill/uL (4.20-5.40); White Blood Cell (WBC) Count 6.9 thou/uL (4.8-10.8)
[2021-02-25 08:02] LABS: Anion Gap 10 mmol/L (10-20); BUN (Urea Nitrogen) 16 mg/dL (9.8-20.1); Calc. Creatinine Clearance 93 mL/min (70-130); Calcium 8.5 mg/dL (7.8-10.44); Carbon Dioxide 25 mmol/L (22-29); Chloride 109 mmol/L (98-107); Glucose 86 mg/dL (70-105); Potassium 3.9 mmol/L (3.5-5.1); Sodium 140 mmol/L (136-145)
[2021-02-25] MEDS: Morphine 4 MG/ML VIAL SLOW IVP PRN ×4 (08:27→20:30)
[2021-02-25] MEDS: Pantoprazole 40 MG VIAL IVP SCH ×2 (08:28→19:53)
[2021-02-25] MEDS: Sucralfate 1 GM/10 ML UDCUP PO PRN (11:21)
[2021-02-25] MEDS: D5 1/2 NS w/20 mEq KCL 1,000 ML IV SCH ×3 (12:49→20:31)
[2021-02-26 00:39] LABS: SARS-CoV-2 PCR by NAA Not Detected (NotDetected)
[2021-02-26] MEDS: Morphine 4 MG/ML VIAL SLOW IVP PRN ×5 (00:41→22:16)
[2021-02-26] MEDS: D5 1/2 NS w/20 mEq KCL 1,000 ML IV SCH ×2 (04:38→16:11)
[2021-02-26] MEDS: Ketorolac Tromethamine 30 MG/ML VIAL IVP PRN (04:55)
[2021-02-26] MEDS ORDERED: PROPOFOL 200 MG/20 ML VIAL ONE (11:52)
[2021-02-26] MEDS ORDERED: Ondansetron HCl/PF 4 MG/2 ML Vial IVP PRN (12:04)
[2021-02-26] MEDS ORDERED: Fentanyl 100 MCG/2 ML VIAL ONE (12:09)
[2021-02-26] MEDS: Pantoprazole 40 MG VIAL IVP SCH ×2 (13:39→20:51)
[2021-02-26] MEDS: Cephalexin 250 MG/5 ML Oral Suspension PO SCH ×2 (16:11→21:03)
[2021-02-26] MEDS: Sucralfate 1 GM/10 ML UDCUP PO SCH ×2 (16:11→20:58)
[2021-02-26] MEDS: Sucralfate 1 GM/10 ML UDCUP PO PRN (20:51)
[2021-02-27] MEDS: Morphine 4 MG/ML VIAL SLOW IVP PRN ×2 (02:18→06:54)
[2021-02-27] MEDS: Sucralfate 1 GM/10 ML UDCUP PO SCH ×4 (02:19→20:47)
[2021-02-27] MEDS: D5 1/2 NS w/20 mEq KCL 1,000 ML IV SCH ×3 (02:25→13:03)
[2021-02-27] MEDS: Cephalexin 250 MG/5 ML Oral Suspension PO SCH ×4 (08:48→20:47)
[2021-02-27] MEDS: Pantoprazole 40 MG VIAL IVP SCH ×2 (09:00→20:47)
[2021-02-27] MEDS: traMADol HCl 50 MG TAB PO PRN ×2 (11:30→14:41)
[2021-02-27] MEDS: Hydrocodone-Acetamin 15 ML UDCUP PO PRN ×2 (12:58→20:48)
[2021-02-27] MEDS: Morphine 2 MG/ML VIAL SLOW IVP PRN ×2 (17:06→22:34)
[2021-02-27 23:59] VITALS: TEMP 97.9
[2021-02-28] MEDS: D5 1/2 NS w/20 mEq KCL 1,000 ML IV SCH ×3 (00:03→15:00)
[2021-02-28] MEDS: Sucralfate 1 GM/10 ML UDCUP PO SCH ×4 (02:02→18:42)
[2021-02-28] MEDS: Hydrocodone-Acetamin 15 ML UDCUP PO PRN ×4 (02:02→16:11)
[2021-02-28] MEDS: Morphine 2 MG/ML VIAL SLOW IVP PRN ×2 (04:26→13:34)
[2021-02-28] MEDS: Cephalexin 250 MG/5 ML Oral Suspension PO SCH ×3 (09:45→18:31)
[2021-02-28] MEDS: Pantoprazole 40 MG VIAL IVP SCH (09:45)
[2021-02-28 17:06] VITALS: BP 120/72
[2021-03-01] MEDS ORDERED: Pantoprazole 40 MG GRANULES PACKET PO SCH (09:00)
== END 2021-02-28 18:53 | disposition home or self-care (01) | DRG 395 ==
LOC: ERS 10:26 → SURG A 15:53 → OBSVTOIN 02-25 07:17
PROVIDERS: ADMIT Surgery; ATTEND Surgery
PROC: 0DJ08ZZ Inspection of Upper Intestinal Tract, Via Natural or Artificial Opening Endoscopic (ICD-10-PCS; principal; 2021-02-26)
DX: K91.89 Other postprocedural complications and disorders of digestive system (principal); K28.9 Gastrojejunal ulcer, unspecified as acute or chronic, without hemorrhage or perforation; E03.9 Hypothyroidism, unspecified; K21.9 Gastro-esophageal reflux disease without esophagitis; M79.7 Fibromyalgia; Z96.659 Presence of unspecified artificial knee joint; E66.9 Obesity, unspecified; Y83.8 Other surgical procedures as the cause of abnormal reaction of the patient, or of later complication, without mention of misadventure at the time of the procedure; Z20.822 Contact with and (suspected) exposure to COVID-19; Z90.49 Acquired absence of other specified parts of digestive tract; Z98.84 Bariatric surgery status; Z68.28 Body mass index [BMI] 28.0-28.9, adult
CPT/HCPCS: 36415; 74220; 80048; 80053; 83690; 85025; 96374; 96375; 96376; C9113; G0378; J1885; J2270; J2405; J2704; J3010; J3480; U0003; U0005

== ENCOUNTER → 2021-02-24 | Day surgery (SDC) | payer MEDICARE ==
[~2021-02-24] MED LIST: Ketorolac Tromethamine 30 MG/ML VIAL IVP PRN; Sucralfate 1 GM/10 ML UDCUP PO PRN
== END ==
LOC: EDSTATUS 11:00 → SDC/OP 13:00 → SURG A 15:54 → SDC/OP 15:54
PROVIDERS: ATTEND Surgery
DX: R10.9 Unspecified abdominal pain (principal); R11.0 Nausea; Z88.8 Allergy status to other drugs, medicaments and biological substances

== ENCOUNTER 2022-11-01 14:44 | Observation (INO) | payer MEDICARE, OTHER ==
[~2022-11-01 14:44] MED LIST changes: +Iopamidol-370 76% 500 ML 1 ML ONE; -Ketorolac Tromethamine 30 MG/ML VIAL IVP PRN; -Sucralfate 1 GM/10 ML UDCUP PO PRN
[2022-11-01 15:22] LABS: #Basophils 0.1 thou/uL (0.0-0.2); #Eosinphils 0.1 thou/uL (0.0-0.7); #Monocytes 0.4 thou/uL (0.11-0.59); #Neutrophils 2.7 thou/uL (1.40-6.50); %Basophils 1.2 % (0.0-1.0); %Eosinophils 1.6 % (0.0-10.0); %Lymphocytes 37.8 % (21.0-51.0); %Monocytes 7.6 % (0.0-10.0); %Neutrophils 51.8 % (42.0-75.0); Mean Corpuscular HGB CONC 33.9 g/dL (32.0-36.0); Mean Corpuscular Hemoglobin 33.6 pg (27.0-31.0); Mean Corpuscular Volume 99.1 fl (78.0-98.0); Mean Platelet Volume 7.4 fL (7.4-10.4); Platelet Count 243 10x3/uL (130-400); RBC Distribution Width 11.3 % (11.5-14.5); Red Blood Cell (RBC) Count 4.47 mill/uL (4.20-5.40); White Blood Cell (WBC) Count 5.2 10x3/uL (4.8-10.8)
[2022-11-01 15:51] LABS: ALT (SGPT) 11 U/L (8-55); AST (SGOT) 18 U/L (5-34); Alkaline Phosphatase 92 U/L (40-110); Anion Gap 12 mmol/L (10-20); BUN (Urea Nitrogen) 20 mg/dL (9.8-20.1); Bilirubin, Total 0.7 mg/dL (0.2-1.2); Calc. Creatinine Clearance 0 mL/min (70-130); Calcium 9.2 mg/dL (7.8-10.44); Carbon Dioxide 24 mmol/L (23-31); Chloride 107 mmol/L (98-107); Estimated GFR 90; Globulin 3.2 g/dL (2.4-3.5); Glucose 86 mg/dL (80-115); Lipase 86 U/L (8-78); Potassium 3.6 mmol/L (3.5-5.1); Protein, Total 7.2 g/dL (5.8-8.1); Sodium 139 mmol/L (136-145)
[2022-11-01] MEDS ORDERED: Fentanyl 100 MCG/2 ML VIAL ONE (17:16)
[2022-11-01] MEDS ORDERED: Morphine 4 MG/ML VIAL ONE ×2 (18:51→20:42)
[2022-11-01] MEDS ORDERED: Pantoprazole 40 MG VIAL ONE (21:33)
[2022-11-01 21:42] LABS: Troponin I Less than 0.010 ng/mL (< 0.028)
[2022-11-01] MEDS ORDERED: Ondansetron ODT 4 MG TAB SL PRN (22:15)
[2022-11-01] MEDS ORDERED: Acetaminophen 325 MG TAB PO PRN (22:15)
[2022-11-01] MEDS ORDERED: Ondansetron PF 4 MG/2 ML Vial IVP PRN (22:15)
[2022-11-01 22:35] VITALS: BMI 26.5
[2022-11-01] MEDS ORDERED: Lidocaine 2% Viscous Solution 10 ML, Aluminum & Magnesium Hydroxide 30 ML SSW SCH (23:30)
[2022-11-01] MEDS ORDERED: Pantoprazole 40 MG VIAL IVP SCH (23:59)
[2022-11-02 00:25] LABS: Troponin I Less than 0.010 ng/mL (< 0.028)
[2022-11-02] MEDS: Morphine 4 MG/ML VIAL SLOW IVP PRN ×3 (00:41→11:13)
[2022-11-02 02:36] LABS: SARS-CoV-2 NAA Rapid Test Not Detected (NotDetected)
[2022-11-02 05:04] LABS: Mean Corpuscular HGB CONC 34.4 g/dL (32.0-36.0); Mean Corpuscular Hemoglobin 34.3 pg (27.0-31.0); Mean Corpuscular Volume 99.8 fl (78.0-98.0); Mean Platelet Volume 7.4 fL (7.4-10.4); Platelet Count 205 10x3/uL (130-400); RBC Distribution Width 11.3 % (11.5-14.5); Red Blood Cell (RBC) Count 4.08 mill/uL (4.20-5.40); White Blood Cell (WBC) Count 4.7 10x3/uL (4.8-10.8)
[2022-11-02 05:23] LABS: ALT (SGPT) 11 U/L (8-55); AST (SGOT) 16 U/L (5-34); Albumin 3.5 g/dL (3.4-4.8); Alkaline Phosphatase 86 U/L (40-110); Anion Gap 12 mmol/L (10-20); BUN (Urea Nitrogen) 16 mg/dL (9.8-20.1); Bilirubin, Total 0.7 mg/dL (0.2-1.2); Calc. Creatinine Clearance 98 mL/min (70-130); Calcium 8.7 mg/dL (7.8-10.44); Carbon Dioxide 23 mmol/L (23-31); Chloride 107 mmol/L (98-107); Estimated GFR 99; Globulin 2.9 g/dL (2.4-3.5); Glucose 69 mg/dL (80-115); Potassium 3.6 mmol/L (3.5-5.1); Protein, Total 6.4 g/dL (5.8-8.1); Sodium 138 mmol/L (136-145)
[2022-11-02 05:35] LABS: Eosinophils 2 % (0-10); Lymphocytes 50 % (21-51); MDiff Complete? YES; Monocytes 8 % (0-10); Neutrophil 37 % (42-75); Reactive Lymphocytes 3 % (0-10)
[2022-11-02] MEDS ORDERED: Dextrose 50% Abboject 50 ML SYRINGE SLOW IVP PRN (08:18)
[2022-11-02] MEDS ORDERED: Dextrose 5% in Water 1,000 ML IV PRN (08:18)
[2022-11-02] MEDS ORDERED: Dextrose 5 %-0.45 % NaCl 1,000 ML IV SCH (08:30)
[2022-11-02] MEDS ORDERED: Pantoprazole 40 MG VIAL IVP SCH (09:00)
[2022-11-02] MEDS ORDERED: PROPOFOL 200 MG/20 ML VIAL ONE (10:07)
[2022-11-02] MEDS ORDERED: Fentanyl 100 MCG/2 ML VIAL ONE (10:27)
[2022-11-02] MEDS: Sucralfate 1 GM/10 ML UDCUP PO SCH ×3 (11:04→19:41)
[2022-11-02] MEDS ORDERED: Acetaminophen 325 MG TAB PO PRN (12:38)
[2022-11-02] MEDS ORDERED: Ondansetron PF 4 MG/2 ML Vial IVP PRN (12:51)
[2022-11-02] MEDS: traMADol HCl 50 MG TAB PO PRN ×2 (13:21→19:40)
[2022-11-02] MEDS ORDERED: Loperamide HCl 2 MG CAP PO PRN (16:11)
[2022-11-02] MEDS ORDERED: Lidocaine 2% Viscous Solution 20 ML, Aluminum & Magnesium Hydroxide 30 ML, Donnatal Eli... SSW SCH (16:15)
[2022-11-02 19:40] VITALS: BP 128/65; TEMP 98
== END 2022-11-02 20:23 | disposition home or self-care (01) ==
LOC: ERS 14:44 → ERHOLD 20:48 → 2SW 22:07
PROVIDERS: ADMIT Family Medicine; ATTEND Family Medicine
PROC: 0DB38ZX Excision of Lower Esophagus, Via Natural or Artificial Opening Endoscopic, Diagnostic (ICD-10-PCS; principal; 2022-11-02)
DX: K21.00 Gastro-esophageal reflux disease with esophagitis, without bleeding (principal); R13.19 Other dysphagia; I10 Essential (primary) hypertension; E03.9 Hypothyroidism, unspecified; M79.7 Fibromyalgia; N20.0 Calculus of kidney; Z87.891 Personal history of nicotine dependence; Z79.890 Hormone replacement therapy; Z79.899 Other long term (current) drug therapy; Z88.8 Allergy status to other drugs, medicaments and biological substances; Z98.84 Bariatric surgery status; Z20.822 Contact with and (suspected) exposure to COVID-19
CPT/HCPCS: 43239; 71045; 74177; 80053 ×2; 83690; 84484 ×2; 85025 ×2; 93005; 96374; 96375; 96376; 99285; U0002; 36415; 88305; 88312; C9113; G0378; J2270; J2405; J2704; J3010; J7042; Q9967; U0003; U0005

== ENCOUNTER 2022-12-09 14:39 | Inpatient (IN) | payer OTHER ==
[2022-12-09 16:14] VITALS: BMI 25.7
[2022-12-09] MEDS ORDERED: Dextrose 50% Abboject 50 ML SYRINGE SLOW IVP PRN (16:20)
[2022-12-09] MEDS ORDERED: hydrALAZINE 20 MG/ML VIAL SLOW IVP PRN (16:20)
[2022-12-09] MEDS ORDERED: Ondansetron PF 4 MG/2 ML Vial IVP PRN (16:20)
[2022-12-09] MEDS ORDERED: Dextrose 5% in Water 1,000 ML IV PRN (16:20)
[2022-12-09] MEDS: Morphine 4 MG/ML VIAL SLOW IVP PRN ×2 (16:47→18:36)
[2022-12-09] MEDS: traMADol HCl 50 MG TAB PO SCH ×2 (17:46→23:09)
[2022-12-09] MEDS: Acetaminophen 500 MG TAB PO SCH ×2 (17:47→23:10)
[2022-12-09] MEDS: Cyclobenzaprine 10 MG TAB PO PRN (17:47)
[2022-12-09] MEDS ORDERED: Sodium Chloride 0.9% 1,000 ML IV SCH (18:15)
[2022-12-09] MEDS ORDERED: CEFAZOLIN 2 GM in Sodium Chloride 0.9% 100 ML IVPB SCH (18:45)
[2022-12-09] MEDS: Gabapentin 300 MG CAP PO SCH (20:47)
[2022-12-09] MEDS: traMADol HCl 50 MG TAB PO PRN (20:47)
[2022-12-09] MEDS: Senokot S 8.6-50 MG TAB PO SCH (20:47)
[2022-12-09] MEDS ORDERED: Famotidine 20 MG TAB PO SCH (21:00)
[2022-12-10] MEDS ORDERED: Ketorolac Tromethamine 30 MG/ML VIAL IVP SCH (02:00)
[2022-12-10] MEDS: traMADol HCl 50 MG TAB PO PRN (04:37)
[2022-12-10 05:48] LABS: #Eosinphils 0.1 thou/uL (0.0-0.7); #Lymphocytes 1.4 thou/uL (1.20-3.40); #Monocytes 0.3 thou/uL (0.11-0.59); #Neutrophils 2.5 thou/uL (1.40-6.50); %Basophils 0.7 % (0.0-1.0); %Eosinophils 2.1 % (0.0-10.0); %Lymphocytes 31.9 % (21.0-51.0); %Monocytes 7.8 % (0.0-10.0); %Neutrophils 57.6 % (42.0-75.0); Hemoglobin 10.4 g/dL (12.0-16.0); Mean Corpuscular Hemoglobin 33.1 pg (27.0-31.0); Mean Platelet Volume 7.7 fL (7.4-10.4); Platelet Count 158 10x3/uL (130-400); RBC Distribution Width 11.7 % (11.5-14.5); Red Blood Cell (RBC) Count 3.15 mill/uL (4.20-5.40); White Blood Cell (WBC) Count 4.4 10x3/uL (4.8-10.8)
[2022-12-10] MEDS: Acetaminophen 500 MG TAB PO SCH ×4 (05:56→23:00)
[2022-12-10] MEDS: traMADol HCl 50 MG TAB PO SCH ×4 (05:56→23:01)
[2022-12-10 06:07] LABS: Anion Gap 7 mmol/L (10-20); BUN (Urea Nitrogen) 19 mg/dL (9.8-20.1); Calc. Creatinine Clearance 94 mL/min (70-130); Carbon Dioxide 26 mmol/L (23-31); Chloride 109 mmol/L (98-107); Potassium 3.8 mmol/L (3.5-5.1); Sodium 138 mmol/L (136-145)
[2022-12-10 06:08] LABS: Calcium 8.1 mg/dL (7.8-10.44); Estimated GFR 99; Glucose 79 mg/dL (80-115); Magnesium 1.8 mg/dL (1.6-2.6); Phosphorus 3.1 mg/dL (2.3-4.7)
[2022-12-10] MEDS ORDERED: Pantoprazole 40 MG VIAL IVP SCH (08:00)
[2022-12-10] MEDS ORDERED: Magnesium 2 GM/50 ML(in water) 2 GM in Premix Bag 1 BAG IVPB SCH (08:00)
[2022-12-10] MEDS: Senokot S 8.6-50 MG TAB PO SCH ×2 (08:05→21:04)
[2022-12-10] MEDS: Gabapentin 300 MG CAP PO SCH ×4 (08:05→21:05)
[2022-12-10] MEDS: Polyethylene Glycol 3350 17 GM Packet PO SCH (08:05)
[2022-12-10] MEDS ORDERED: fentaNYL 50 mcg/mL 1 mL Vial ONE (08:42)
[2022-12-10] MEDS ORDERED: CEFAZOLIN 2 GM VIAL ONE (09:07)
[2022-12-10] MEDS ORDERED: Sodium Chloride 0.9% 100 ML ONE (09:07)
[2022-12-10] MEDS ORDERED: Fentanyl 250 MCG/5 ML VIAL ONE ×2 (09:10→11:17)
[2022-12-10] MEDS ORDERED: NEOSTIGMINE 3 MG/3 ML SYR 3 MG/3 ML SYRINGE ONE (09:18)
[2022-12-10] MEDS ORDERED: Dexamethasone 20 MG/5 ML VIAL ONE (09:18)
[2022-12-10] MEDS ORDERED: Rocuronium Bromide 10 MG/ML (10ML VIAL) ONE (09:18)
[2022-12-10] MEDS ORDERED: GLYCOPYRROLATE/PF 0.2 MG/ML VIAL ONE (09:18)
[2022-12-10] MEDS ORDERED: Ondansetron PF 4 MG/2 ML Vial ONE (09:18)
[2022-12-10] MEDS ORDERED: Lidocaine 1% PF 5 ML VIAL ONE (09:18)
[2022-12-10] MEDS ORDERED: PROPOFOL 200 MG/20 ML VIAL ONE (09:18)
[2022-12-10] MEDS ORDERED: Atropine Sulfate 0.4 mg/1 ml Vial ONE (09:39)
[2022-12-10] MEDS ORDERED: Promethazine HCl 25 MG/ML VIAL IM PRN (11:07)
[2022-12-10] MEDS ORDERED: HYDROmorphone 2 MG/ML VIAL SLOW IVP PRN (11:07)
[2022-12-10] MEDS ORDERED: Ondansetron HCl/PF 4 MG/2 ML Vial IVP PRN (11:07)
[2022-12-10] MEDS: Morphine 4 MG/ML VIAL SLOW IVP PRN ×4 (12:21→22:59)
[2022-12-10] MEDS: CEFAZOLIN 2 GM in Sodium Chloride 0.9% 100 ML IVPB SCH (17:21)
[2022-12-10] MEDS: Cyclobenzaprine 10 MG TAB PO PRN (21:04)
[2022-12-11] MEDS: CEFAZOLIN 2 GM in Sodium Chloride 0.9% 100 ML IVPB SCH ×2 (01:05→09:15)
[2022-12-11] MEDS: Acetaminophen 500 MG TAB PO SCH (05:30)
[2022-12-11] MEDS: Levothyroxine Sodium 50 MCG TAB PO SCH (05:30)
[2022-12-11] MEDS: traMADol HCl 50 MG TAB PO SCH (05:30)
[2022-12-11] MEDS: Morphine 4 MG/ML VIAL SLOW IVP PRN (05:31)
[2022-12-11 07:34] LABS: #Lymphocytes 1.2 thou/uL (1.20-3.40); #Monocytes 0.5 thou/uL (0.11-0.59); #Neutrophils 5.1 thou/uL (1.40-6.50); %Basophils 0.3 % (0.0-1.0); %Eosinophils 0.6 % (0.0-10.0); %Lymphocytes 17.9 % (21.0-51.0); %Monocytes 7.9 % (0.0-10.0); %Neutrophils 73.3 % (42.0-75.0); Hemoglobin 9.6 g/dL (12.0-16.0); Mean Corpuscular HGB CONC 33.5 g/dL (32.0-36.0); Mean Corpuscular Hemoglobin 33.6 pg (27.0-31.0); Mean Platelet Volume 8.2 fL (7.4-10.4); Platelet Count 165 10x3/uL (130-400); RBC Distribution Width 11.7 % (11.5-14.5); Red Blood Cell (RBC) Count 2.87 mill/uL (4.20-5.40); White Blood Cell (WBC) Count 6.9 10x3/uL (4.8-10.8)
[2022-12-11] MEDS ORDERED: Non-Formulary Item 1 EACH (Dextroamphetamine/Amphetamine [Adderall] 30 MG Tablet) PO SCH (09:00)
[2022-12-11] MEDS ORDERED: Dextroamphetamine/Amphetamine [Adderall] 30 MG Tablet DT SCH (09:00)
[2022-12-11] MEDS: Pregabalin 50 MG CAP PO SCH ×2 (09:13→20:01)
[2022-12-11] MEDS: Senokot S 8.6-50 MG TAB PO SCH ×2 (09:13→20:02)
[2022-12-11] MEDS: Sucralfate 1 GM/10 ML UDCUP PO SCH ×4 (09:13→20:03)
[2022-12-11] MEDS: Multivitamin W/ Minerals 1 TAB PO SCH ×2 (09:13→20:00)
[2022-12-11] MEDS: Polyethylene Glycol 3350 17 GM Packet PO SCH (09:15)
[2022-12-11] MEDS: traMADol HCl 50 MG TAB PO PRN ×3 (09:18→21:09)
[2022-12-11] MEDS ORDERED: Acetaminophen/Codeine 30-300mg Tablet PO SCH ×2 (11:00→12:00)
[2022-12-11] MEDS: Acetaminophen 325 MG TAB PO SCH ×2 (11:16→17:55)
[2022-12-11] MEDS ORDERED: Morphine 4 MG/ML VIAL SLOW IVP SCH (14:45)
[2022-12-11] MEDS: Acetaminophen/Codeine 30-300mg Tablet PO SCH ×2 (17:54→23:57)
[2022-12-11] MEDS: traZODone HCl 150 MG TAB PO SCH (20:03)
[2022-12-11] MEDS: Cyclobenzaprine 10 MG TAB PO PRN (23:59)
[2022-12-12] MEDS: Acetaminophen 325 MG TAB PO SCH ×4 (00:01→17:00)
[2022-12-12] MEDS: Acetaminophen/Codeine 30-300mg Tablet PO SCH ×3 (04:59→17:00)
[2022-12-12] MEDS: Levothyroxine Sodium 50 MCG TAB PO SCH (05:00)
[2022-12-12] MEDS: traMADol HCl 50 MG TAB PO PRN ×3 (06:05→20:16)
[2022-12-12 06:59] LABS: #Eosinphils 0.1 thou/uL (0.0-0.7); #Lymphocytes 1.4 thou/uL (1.20-3.40); #Monocytes 0.3 thou/uL (0.11-0.59); #Neutrophils 3.5 thou/uL (1.40-6.50); %Basophils 0.6 % (0.0-1.0); %Eosinophils 2.5 % (0.0-10.0); %Lymphocytes 25.9 % (21.0-51.0); %Monocytes 4.8 % (0.0-10.0); %Neutrophils 66.2 % (42.0-75.0); Hemoglobin 9.3 g/dL (12.0-16.0); Mean Corpuscular HGB CONC 33.6 g/dL (32.0-36.0); Mean Corpuscular Hemoglobin 33.9 pg (27.0-31.0); Mean Platelet Volume 7.9 fL (7.4-10.4); Platelet Count 161 10x3/uL (130-400); RBC Distribution Width 11.9 % (11.5-14.5); Red Blood Cell (RBC) Count 2.74 mill/uL (4.20-5.40); White Blood Cell (WBC) Count 5.3 10x3/uL (4.8-10.8)
[2022-12-12 07:22] LABS: Anion Gap 8 mmol/L (10-20); BUN (Urea Nitrogen) 15 mg/dL (9.8-20.1); Calc. Creatinine Clearance 101 mL/min (70-130); Calcium 8.6 mg/dL (7.8-10.44); Carbon Dioxide 27 mmol/L (23-31); Chloride 106 mmol/L (98-107); Estimated GFR 101; Glucose 90 mg/dL (80-115); Magnesium 1.8 mg/dL (1.6-2.6); Phosphorus 2.9 mg/dL (2.3-4.7); Potassium 3.9 mmol/L (3.5-5.1); Sodium 137 mmol/L (136-145)
[2022-12-12] MEDS ORDERED: PHOS-NAK 1 PKT PACK PO SCH (08:15)
[2022-12-12] MEDS ORDERED: Magnesium 2 GM/50 ML(in water) 2 GM in Premix Bag 1 BAG IVPB SCH (08:15)
[2022-12-12] MEDS: Multivitamin W/ Minerals 1 TAB PO SCH ×2 (09:00→20:17)
[2022-12-12] MEDS: Sucralfate 1 GM/10 ML UDCUP PO SCH ×4 (09:00→20:15)
[2022-12-12] MEDS: Pregabalin 50 MG CAP PO SCH ×2 (09:00→20:17)
[2022-12-12] MEDS: Senokot S 8.6-50 MG TAB PO SCH ×2 (09:01→20:15)
[2022-12-12] MEDS: Polyethylene Glycol 3350 17 GM Packet PO SCH (09:01)
[2022-12-12] MEDS: Cyclobenzaprine 10 MG TAB PO PRN (09:01)
[2022-12-12] MEDS: traZODone HCl 150 MG TAB PO SCH (20:16)
[2022-12-13] MEDS: Acetaminophen/Codeine 30-300mg Tablet PO SCH ×5 (00:14→23:47)
[2022-12-13] MEDS: Acetaminophen 325 MG TAB PO SCH ×5 (00:15→23:48)
[2022-12-13] MEDS: Levothyroxine Sodium 50 MCG TAB PO SCH (06:49)
[2022-12-13 07:08] LABS: #Eosinphils 0.1 thou/uL (0.0-0.7); #Lymphocytes 1.6 thou/uL (1.20-3.40); #Monocytes 0.3 thou/uL (0.11-0.59); %Basophils 0.3 % (0.0-1.0); %Eosinophils 3.5 % (0.0-10.0); %Lymphocytes 39.2 % (21.0-51.0); %Monocytes 8.1 % (0.0-10.0); %Neutrophils 48.9 % (42.0-75.0); Hemoglobin 8.3 g/dL (12.0-16.0); Mean Corpuscular HGB CONC 33.2 g/dL (32.0-36.0); Mean Corpuscular Hemoglobin 33.6 pg (27.0-31.0); Mean Platelet Volume 7.5 fL (7.4-10.4); Platelet Count 166 10x3/uL (130-400); RBC Distribution Width 11.8 % (11.5-14.5); Red Blood Cell (RBC) Count 2.48 mill/uL (4.20-5.40)
[2022-12-13] MEDS: Sucralfate 1 GM/10 ML UDCUP PO SCH ×4 (08:36→20:29)
[2022-12-13] MEDS: Multivitamin W/ Minerals 1 TAB PO SCH ×2 (08:37→20:29)
[2022-12-13] MEDS: Senokot S 8.6-50 MG TAB PO SCH ×2 (08:37→23:46)
[2022-12-13] MEDS: Polyethylene Glycol 3350 17 GM Packet PO SCH (08:37)
[2022-12-13] MEDS: Pregabalin 50 MG CAP PO SCH ×2 (08:37→20:30)
[2022-12-13] MEDS: traMADol HCl 50 MG TAB PO PRN ×2 (13:50→20:33)
[2022-12-13] MEDS: traZODone HCl 150 MG TAB PO SCH (23:51)
[2022-12-14] MEDS: traMADol HCl 50 MG TAB PO PRN ×4 (03:52→22:33)
[2022-12-14] MEDS: Acetaminophen/Codeine 30-300mg Tablet PO SCH ×3 (06:01→18:03)
[2022-12-14] MEDS: Acetaminophen 325 MG TAB PO SCH ×3 (06:01→18:02)
[2022-12-14] MEDS: Levothyroxine Sodium 50 MCG TAB PO SCH (06:01)
[2022-12-14] MEDS: Senokot S 8.6-50 MG TAB PO SCH ×2 (08:09→20:14)
[2022-12-14] MEDS: Pregabalin 50 MG CAP PO SCH ×2 (08:09→20:15)
[2022-12-14] MEDS: Multivitamin W/ Minerals 1 TAB PO SCH ×2 (08:09→20:14)
[2022-12-14] MEDS: Sucralfate 1 GM/10 ML UDCUP PO SCH ×2 (08:09→12:44)
[2022-12-14] MEDS: Polyethylene Glycol 3350 17 GM Packet PO SCH (08:09)
[2022-12-14 08:56] LABS: #Eosinphils 0.2 thou/uL (0.0-0.7); #Lymphocytes 1.4 thou/uL (1.20-3.40); #Monocytes 0.4 thou/uL (0.11-0.59); #Neutrophils 2.6 thou/uL (1.40-6.50); %Basophils 0.3 % (0.0-1.0); %Eosinophils 4.1 % (0.0-10.0); %Lymphocytes 31.5 % (21.0-51.0); %Monocytes 7.6 % (0.0-10.0); %Neutrophils 56.5 % (42.0-75.0); Hemoglobin 9.3 g/dL (12.0-16.0); Mean Corpuscular HGB CONC 33.6 g/dL (32.0-36.0); Mean Corpuscular Hemoglobin 33.8 pg (27.0-31.0); Mean Platelet Volume 7.3 fL (7.4-10.4); Platelet Count 226 10x3/uL (130-400); RBC Distribution Width 11.7 % (11.5-14.5); Red Blood Cell (RBC) Count 2.74 mill/uL (4.20-5.40); White Blood Cell (WBC) Count 4.5 10x3/uL (4.8-10.8)
[2022-12-14] MEDS: Sucralfate 1 GM TAB PO SCH ×2 (18:02→20:14)
[2022-12-14] MEDS: traZODone HCl 150 MG TAB PO SCH (20:17)
[2022-12-15] MEDS: Acetaminophen/Codeine 30-300mg Tablet PO SCH ×5 (00:57→23:14)
[2022-12-15] MEDS: Acetaminophen 325 MG TAB PO SCH ×5 (00:58→23:14)
[2022-12-15] MEDS: Levothyroxine Sodium 50 MCG TAB PO SCH (05:26)
[2022-12-15] MEDS: Polyethylene Glycol 3350 17 GM Packet PO SCH (08:03)
[2022-12-15] MEDS: Multivitamin W/ Minerals 1 TAB PO SCH ×2 (08:09→21:27)
[2022-12-15] MEDS: Pregabalin 50 MG CAP PO SCH ×2 (08:10→21:28)
[2022-12-15] MEDS: traMADol HCl 50 MG TAB PO PRN ×3 (08:11→19:52)
[2022-12-15] MEDS: Senokot S 8.6-50 MG TAB PO SCH ×2 (08:11→21:28)
[2022-12-15] MEDS: Sucralfate 1 GM TAB PO SCH ×4 (08:11→21:27)
[2022-12-15] MEDS ORDERED: Lidocaine 4% Patch TD SCH (10:45)
[2022-12-15] MEDS: Cyclobenzaprine 10 MG TAB PO PRN (17:05)
[2022-12-15] MEDS: Transdermal Patch Removal TOP SCH (21:28)
[2022-12-15] MEDS: traZODone HCl 150 MG TAB PO SCH (21:28)
[2022-12-16] MEDS: Cyclobenzaprine 10 MG TAB PO PRN ×2 (04:06→21:16)
[2022-12-16] MEDS: traMADol HCl 50 MG TAB PO PRN ×3 (04:06→21:15)
[2022-12-16] MEDS: Acetaminophen/Codeine 30-300mg Tablet PO SCH ×3 (06:08→17:39)
[2022-12-16] MEDS: Levothyroxine Sodium 50 MCG TAB PO SCH (06:08)
[2022-12-16] MEDS: Acetaminophen 325 MG TAB PO SCH ×3 (06:09→17:40)
[2022-12-16] MEDS: Lidocaine 4% Patch TD SCH (08:25)
[2022-12-16] MEDS: Pregabalin 50 MG CAP PO SCH ×2 (08:26→21:15)
[2022-12-16] MEDS: Senokot S 8.6-50 MG TAB PO SCH ×2 (08:26→21:15)
[2022-12-16] MEDS: Multivitamin W/ Minerals 1 TAB PO SCH ×2 (08:27→21:16)
[2022-12-16] MEDS: Sucralfate 1 GM TAB PO SCH ×4 (08:27→21:15)
[2022-12-16] MEDS: Polyethylene Glycol 3350 17 GM Packet PO SCH (09:45)
[2022-12-16] MEDS: Transdermal Patch Removal TOP SCH (21:21)
[2022-12-17] MEDS: traZODone HCl 150 MG TAB PO SCH (01:41)
[2022-12-17] MEDS: Acetaminophen/Codeine 30-300mg Tablet PO SCH ×3 (02:31→13:34)
[2022-12-17] MEDS: traMADol HCl 50 MG TAB PO PRN ×2 (02:32→11:13)
[2022-12-17] MEDS: Acetaminophen 325 MG TAB PO SCH ×3 (02:33→13:37)
[2022-12-17] MEDS: Levothyroxine Sodium 50 MCG TAB PO SCH (05:27)
[2022-12-17] MEDS: Pregabalin 50 MG CAP PO SCH (08:14)
[2022-12-17] MEDS: Lidocaine 4% Patch TD SCH (08:14)
[2022-12-17] MEDS: Senokot S 8.6-50 MG TAB PO SCH (08:14)
[2022-12-17] MEDS: Multivitamin W/ Minerals 1 TAB PO SCH (08:15)
[2022-12-17] MEDS: Polyethylene Glycol 3350 17 GM Packet PO SCH (08:15)
[2022-12-17] MEDS: Sucralfate 1 GM TAB PO SCH ×2 (08:19→13:40)
[2022-12-17 12:20] VITALS: BP 115/71; TEMP 98.1
== END 2022-12-17 14:40 | disposition home or self-care (01) | DRG 481 ==
LOC: SURG B 15:32
PROVIDERS: ADMIT Student in an Organized Health Care Education/Training Program; ATTEND Student in an Organized Health Care Education/Training Program
PROC: 0QSB04Z Reposition Right Lower Femur with Internal Fixation Device, Open Approach (ICD-10-PCS; principal; 2022-12-10)
DX: S72.401A Unspecified fracture of lower end of right femur, initial encounter for closed fracture (principal); D62 Acute posthemorrhagic anemia; M97.11XA Periprosthetic fracture around internal prosthetic right knee joint, initial encounter; M79.7 Fibromyalgia; G47.00 Insomnia, unspecified; I10 Essential (primary) hypertension; E03.9 Hypothyroidism, unspecified; K25.9 Gastric ulcer, unspecified as acute or chronic, without hemorrhage or perforation; Z96.641 Presence of right artificial hip joint; G89.11 Acute pain due to trauma; W06.XXXA Fall from bed, initial encounter; Z98.890 Other specified postprocedural states; Z98.84 Bariatric surgery status; Z90.49 Acquired absence of other specified parts of digestive tract; Z90.710 Acquired absence of both cervix and uterus
CPT/HCPCS: 36415; 71045; 80048; 83735; 84100; 85025; C1713; C9113; J0461; J1100; J1650; J1885; J2270; J2405; J2704; J3010; J3475; J3490; J7050

== ENCOUNTER 2023-05-20 09:29 | Outpatient (CLI) | payer OTHER | END 2023-05-20 09:30 | disposition home or self-care (01) | LOC: SCSCT 09:29 | PROVIDERS: ATTEND Physician Assistant Surgical | DX: S72.491D Other fracture of lower end of right femur, subsequent encounter for closed fracture with routine healing (principal); Z98.890 Other specified postprocedural states ==

== ENCOUNTER 2023-07-03 15:48 | Inpatient (IN) | payer OTHER ==
[2023-07-03] MEDS ORDERED: Ondansetron PF 4 MG/2 ML Vial ONE ×2 (16:25→17:47)
[2023-07-03] MEDS ORDERED: fentaNYL 50 mcg/mL 1 mL Vial ONE ×6 (16:25→20:02)
[2023-07-03] MEDS ORDERED: EPINEPHrine 1 MG/ML AMP ONE (17:18)
[2023-07-03] MEDS ORDERED: Bupivacaine 0.25% HCL 30 ML VIAL ONE (17:18)
[2023-07-03] MEDS ORDERED: Midazolam HCl 2 mg/2 ml Vial ONE (17:20)
[2023-07-03] MEDS ORDERED: CEFAZOLIN 2 GM VIAL ONE (17:35)
[2023-07-03] MEDS ORDERED: Sodium Chloride 0.9% 100 ML ONE (17:35)
[2023-07-03] MEDS ORDERED: SUGAMMADEX SODIUM 200 MG/2 ML VIAL ONE (17:41)
[2023-07-03] MEDS ORDERED: Glycopyrrolate 0.2 MG/ML 5 ML SYRINGE ONE (17:47)
[2023-07-03] MEDS ORDERED: Dexamethasone 20 MG/5 ML VIAL ONE (17:47)
[2023-07-03] MEDS ORDERED: PROPOFOL 200 MG/20 ML VIAL ONE (17:47)
[2023-07-03] MEDS ORDERED: Lidocaine 1% PF 5 ML VIAL ONE (17:47)
[2023-07-03] MEDS ORDERED: Succinylcholine 200 MG/10 ml SYRINGE FS ONE (17:47)
[2023-07-03] MEDS ORDERED: PHENYLEPHRINE-NS 100 MCG/ML 10 ML SYRINGE ONE (17:47)
[2023-07-03] MEDS ORDERED: Rocuronium Bromide 10 MG/ML (10ML VIAL) ONE (17:47)
[2023-07-03] MEDS ORDERED: Promethazine HCl 25 MG/ML VIAL IM PRN ×4 (19:29→19:51)
[2023-07-03] MEDS ORDERED: Ketorolac Tromethamine 30 MG/ML VIAL IVP PRN (19:29)
[2023-07-03] MEDS ORDERED: Ondansetron HCl/PF 4 MG/2 ML Vial IVP PRN ×2 (19:29)
[2023-07-03] MEDS ORDERED: HYDROmorphone 2 MG/ML VIAL SLOW IVP PRN (19:29)
[2023-07-03] MEDS ORDERED: Ketorolac Tromethamine 30 MG/ML VIAL ONE (19:32)
[2023-07-03] MEDS ORDERED: HYDROmorphone 0.5 MG/0.5 ML SYRINGE ONE ×2 (19:35→19:40)
[2023-07-03] MEDS ORDERED: Ipratropium/Albuterol 3 ML NEB NEB PRN (19:39)
[2023-07-03] MEDS ORDERED: hydrALAZINE 20 MG/ML VIAL SLOW IVP PRN (19:39)
[2023-07-03] MEDS ORDERED: Morphine 4 MG/ML VIAL SLOW IVP PRN (19:39)
[2023-07-03] MEDS ORDERED: Ondansetron PF 4 MG/2 ML Vial IVP PRN ×2 (19:39→19:51)
[2023-07-03] MEDS ORDERED: Morphine 2 MG/ML VIAL SLOW IVP PRN (19:39)
[2023-07-03] MEDS ORDERED: diphenhydrAMINE 50 MG/ML VIAL IM PRN (19:51)
[2023-07-03] MEDS ORDERED: diphenhydrAMINE 25 MG CAP PO PRN (19:51)
[2023-07-03] MEDS ORDERED: Naloxone HCl 0.4 mg/ml Vial IV PRN (19:51)
[2023-07-03] MEDS ORDERED: FENTANYL 500 MCG/10 ML VIAL 2,000 MCG in Sodium Chloride 0.9% 60 ML IV PRN (19:51)
[2023-07-03] MEDS ORDERED: Communication Order-Pharmacy FS SCH (20:00)
[2023-07-03] MEDS ORDERED: PREGABALIN PO SCH (21:00)
[2023-07-03] MEDS: D5 1/2 NS w/20 mEq KCL 1,000 ML IV SCH (22:31)
[2023-07-03] MEDS: Famotidine/PF 20 mg/2ml Vial SLOW IVP SCH (22:32)
[2023-07-03] MEDS: diphenhydrAMINE 50 MG/ML VIAL IVP PRN (22:32)
[2023-07-03] MEDS: traZODone HCl 150 MG TAB PO SCH (22:34)
[2023-07-03] MEDS: Famotidine 20 MG TAB PO SCH (22:34)
[2023-07-03] MEDS: Ketorolac Tromethamine 30 MG/ML VIAL IVP SCH (23:02)
[2023-07-03] MEDS ORDERED: Ketorolac Tromethamine 30 MG/ML VIAL IVP SCH (23:59)
[2023-07-04 02:46] VITALS: BMI 24.9
[2023-07-04] MEDS: cefOXitin Sodium 1 GM in Sodium Chloride 0.9% 100 ML IVPB SCH ×2 (03:02→10:28)
[2023-07-04 05:18] LABS: #Monocytes 0.4 thou/uL (0.11-0.59); #Neutrophils 8.6 thou/uL (1.40-6.50); %Basophils 0.2 % (0.0-1.0); %Lymphocytes 6.5 % (21.0-51.0); %Monocytes 3.9 % (0.0-10.0); %Neutrophils 89.2 % (42.0-75.0); Hematocrit 33.4 % (36.0-47.0); Hemoglobin 11.2 g/dL (12.0-16.0); Mean Corpuscular HGB CONC 33.5 g/dL (32.0-36.0); Mean Corpuscular Hemoglobin 31.1 pg (27.0-31.0); Mean Corpuscular Volume 92.8 fl (78.0-98.0); Mean Platelet Volume 10.3 fL (7.4-10.4); Platelet Count 171 10x3/uL (130-400); RBC Distribution Width 13.7 % (11.5-14.5); White Blood Cell (WBC) Count 9.6 10x3/uL (4.8-10.8)
[2023-07-04 05:45] LABS: Anion Gap 9 mmol/L (10-20); BUN (Urea Nitrogen) 19 mg/dL (9.8-20.1); Calc. Creatinine Clearance 87 mL/min (70-130); Carbon Dioxide 24 mmol/L (23-31); Chloride 107 mmol/L (98-107); Estimated GFR 98; Glucose 114 mg/dL (80-115); Sodium 136 mmol/L (136-145)
[2023-07-04] MEDS: Levothyroxine Sodium 50 MCG TAB PO SCH (06:16)
[2023-07-04] MEDS: Ketorolac Tromethamine 30 MG/ML VIAL IVP SCH ×3 (06:17→18:44)
[2023-07-04] MEDS: D5 1/2 NS w/20 mEq KCL 1,000 ML IV SCH ×2 (08:16→18:43)
[2023-07-04] MEDS: Famotidine 20 MG TAB PO SCH ×2 (08:22→21:36)
[2023-07-04] MEDS: Famotidine/PF 20 mg/2ml Vial SLOW IVP SCH ×2 (08:22→21:36)
[2023-07-04] MEDS: HYDROmorphone/PF 10 MG in Sodium Chloride 0.9% 99 ML IVPB PRN (14:26)
[2023-07-04] MEDS: traZODone HCl 150 MG TAB PO SCH (21:36)
[2023-07-05] MEDS: Ketorolac Tromethamine 30 MG/ML VIAL IVP SCH ×5 (00:22→23:50)
[2023-07-05] MEDS: D5 1/2 NS w/20 mEq KCL 1,000 ML IV SCH ×2 (03:06→06:50)
[2023-07-05] MEDS: Levothyroxine Sodium 50 MCG TAB PO SCH (06:06)
[2023-07-05] MEDS: Famotidine/PF 20 mg/2ml Vial SLOW IVP SCH (08:17)
[2023-07-05] MEDS: HYDROmorphone/PF 10 MG in Sodium Chloride 0.9% 99 ML IVPB PRN ×2 (08:18→23:50)
[2023-07-05] MEDS: Famotidine 20 MG TAB PO SCH ×2 (08:19→22:15)
[2023-07-05 08:32] LABS: #Eosinphils 0.2 thou/uL (0.0-0.7); #Monocytes 0.2 thou/uL (0.11-0.59); #Neutrophils 3.4 thou/uL (1.40-6.50); %Basophils 0.4 % (0.0-1.0); %Eosinophils 3.2 % (0.0-10.0); %Lymphocytes 20.9 % (21.0-51.0); %Monocytes 3.4 % (0.0-10.0); %Neutrophils 71.9 % (42.0-75.0); Hematocrit 34.3 % (36.0-47.0); Hemoglobin 11.2 g/dL (12.0-16.0); Mean Corpuscular HGB CONC 32.7 g/dL (32.0-36.0); Mean Corpuscular Hemoglobin 30.9 pg (27.0-31.0); Mean Corpuscular Volume 94.8 fl (78.0-98.0); Mean Platelet Volume 10.8 fL (7.4-10.4); Platelet Count 160 10x3/uL (130-400); RBC Distribution Width 13.9 % (11.5-14.5); Red Blood Cell (RBC) Count 3.62 mill/uL (4.20-5.40); White Blood Cell (WBC) Count 4.7 10x3/uL (4.8-10.8)
[2023-07-05] MEDS ORDERED: D5 1/2 NS w/20 mEq KCL 1,000 ML IV SCH (10:00)
[2023-07-05] MEDS: traZODone HCl 150 MG TAB PO SCH (22:15)
[2023-07-05] MEDS: diphenhydrAMINE 50 MG/ML VIAL IVP PRN (22:24)
[2023-07-06] MEDS: Levothyroxine Sodium 50 MCG TAB PO SCH (05:53)
[2023-07-06] MEDS: Ketorolac Tromethamine 30 MG/ML VIAL IVP SCH (05:55)
[2023-07-06 07:54] VITALS: BP 123/77; TEMP 98.3
[2023-07-06] MEDS ORDERED: HYDROcodone/Acetaminophen 7.5/325 mg Tablet PO PRN ×2 (08:30→08:42)
[2023-07-06] MEDS: Famotidine 20 MG TAB PO SCH (09:56)
== END 2023-07-06 12:25 | disposition home or self-care (01) | DRG 336 ==
LOC: ERS 15:48 → ERHOLD 16:52 → PACU-TCU 19:37 → SURG B 21:03
PROVIDERS: ADMIT Specialist; ATTEND Specialist
PROC: 0DNW4ZZ Release Peritoneum, Percutaneous Endoscopic Approach (ICD-10-PCS; principal; 2023-07-04)
PROC: 0WJG0ZZ Inspection of Peritoneal Cavity, Open Approach (ICD-10-PCS; 2023-07-04)
DX: K46.0 Unspecified abdominal hernia with obstruction, without gangrene (principal); K56.609 Unspecified intestinal obstruction, unspecified as to partial versus complete obstruction; G47.00 Insomnia, unspecified; E03.9 Hypothyroidism, unspecified; I10 Essential (primary) hypertension; K21.9 Gastro-esophageal reflux disease without esophagitis; F90.9 Attention-deficit hyperactivity disorder, unspecified type; F10.90 Alcohol use, unspecified, uncomplicated; E66.9 Obesity, unspecified; E11.9 Type 2 diabetes mellitus without complications; Z96.651 Presence of right artificial knee joint; Z98.890 Other specified postprocedural states; Z98.84 Bariatric surgery status; Z90.49 Acquired absence of other specified parts of digestive tract; Z90.710 Acquired absence of both cervix and uterus; Z87.891 Personal history of nicotine dependence
CPT/HCPCS: 36415; 80048; 83605; 85025; 93005; 96374; 96375; C1776; J0171; J0694; J1100; J1170; J1200; J1650; J1885; J2250; J2405; J2704; J3010; J3480; J3490; S0020; S0028